=== PATIENT | male | born 1985 | race Two or more races ===

== ENCOUNTER → 2025-05-20 | Outpatient (CLI) | payer BC, SELFPAY ==
[2025-05-20 08:21] VITALS: BMI 28.4
[2025-05-20 09:22] LABS: Basophils # (Auto) 0.0 Thou/mm3 (0.0-0.2); Basophils % (Auto) 1 % (0-2.5); Eosinophils # (Auto) 0.2 Thou/mm3 (0.0-0.5); Eosinophils % (Auto) 3 % (0-10); Hematocrit 43.3 % (41.0-53.0); Hemoglobin 14.2 g/dL (13.5-16.0); Immature Granulocytes Auto 0.03 Thou/mm3 (0.00-0.00); Lymphocytes # (Auto) 2.6 Thou/mm3 (1.0-4.8); Lymphocytes % (Auto) 39 % (10-50); Mean Corpuscular HGB Conc 32.8 g/dl (31.0-37.0); Mean Corpuscular Hemoglobin 30.0 pg (25.0-35.0); Mean Corpuscular Volume 91 fL (80-100); Monocytes # (Auto) 0.6 Thou/mm3 (0.0-0.8); Monocytes % (Auto) 9 % (0-12); Neutrophils # (Auto) 3.3 Thou/mm3 (1.8-7.7); Neutrophils % (Auto) 48 % (37-80); Nucleated Red Blood Cell # 0.00 Thou/mm3 (0.00-0.00); Nucleated Red Blood Cell % 0 /100 WBC (0); Platelet Count 165 Thou/mm3 (140-440); RDW Standard Deviation 41.7 fL (35.1-43.9); Red Blood Count 4.74 Miln/mm3 (4.50-5.90); White Blood Count 6.7 Thou/mm3 (3.8-10.6)
[2025-05-20 09:44] LABS: Anion Gap 10 (7-16); BUN/Creatinine Ratio 15 Ratio (12-20); Blood Urea Nitrogen 18 mg/dL (9-23); Calcium 9.7 mg/dL (8.3-10.6); Carbon Dioxide 26.5 mMol/L (20.0-31.0); Chloride 107 mMol/L (98-107); Creatinine (Component) 1.2 mg/dL (0.6-1.3); Estimated Creatinine Clearance 82.4 mL/min (>60); Glucose 115 mg/dL (74-106); Osmolality,Calculated 287 (275-295); Potassium 4.0 mMol/L (3.4-5.1); Sodium 143 mMol/L (136-145); eGFR > 60 See Note
== END | disposition home or self-care (01) ==
LOC: SLAB 05-29 08:28
PROVIDERS: PCP Family Medicine; Referring Provider Surgery; Visit Provider Surgery
DX: Z98.52 Vasectomy status (principal)
CPT/HCPCS: 36415; 80048; 85025

== ENCOUNTER 2025-06-07 08:10 | Day surgery (SDC) | payer BC, SELFPAY ==
--- NOTE | 2025-06-06 13:33 | ESHP_ITS ---
RE: AKSHAT KRAUS : 1985 DATE OF ADMISSION: 06/06/2025 HISTORY OF PRESENT ILLNESS: A 40-year-old gentleman who was referred to me. The patient is desiring bilateral vasectomy for family planning. He has 3 children. PAST SURGICAL HISTORY: None. ALLERGIES: NONE KNOWN. PAST MEDICAL HISTORY: No history of diabetes mellitus. No history of hypertension. MEDICATIONS: None. PHYSICAL EXAMINATION: HEENT: Normal. NECK: Supple. LUNGS: Clear. CARDIOVASCULAR: Heart sounds are normal. ABDOMEN: Soft without any organomegaly. No guarding. No rigidity. EXTREMITIES: Normal. GENITOURINARY: Phallus is normal. Testes are down in the scrotum. IMPRESSION: The patient desiring bilateral vasectomy for family planning. PLAN: Planned procedure risks and complications have been discussed with the patient. The patient has understood them and agreed to proceed. DT: 12:33:16 TT: 13:31:00 Ref: [id number] - TID: [id number]
--- NOTE | 2025-06-06 15:50 | SUR.PREOP ---
Pt was cancelled last week, Dr was sick, ok to use labs from last week per Dr Franklin.
[2025-06-06 16:15] VITALS: BMI 27.0
[2025-06-07] VITALS (7 sets, daily range): BP systolic 119–146; BP diastolic 84–98; PULSE 58–91; RESP 12–20; TEMP 36.4–37.2; O2SAT 97–100; BMI 27.1
[2025-06-07] MEDS: RINGERS LACTATED 1000 ML 1,000 ML 20 ML IV (08:58)
--- NOTE | 2025-06-07 09:53 | SUR.PREOP ---
Patient expressed gratitude for prayer before their procedure
--- NOTE | 2025-06-07 10:40 | SUR.PHASEI ---
1040: Pt. AAOx4, vitals stable, breathing unlabored, no complaint of pain or nausea, dressing to scrotum CDI, no active bleed noted, report received from Dangelo SCHULTZ and Claudio ELLIS.
--- NOTE | 2025-06-07 11:35 | SUR.PHASEII ---
1135: Pt. AAOx4, vitals stable, breathing unlabored, no complaint of pain or nausea, dressing to scrotum CDI, no active bleed noted, pt. tolerated sips of water well, pt. ambulated to wheelchair with steady gait and no assist, no complications. Gave discharge instructions to the pt. and his ride using a air traffic control supervisor, both verbalized understanding and had no further questions. Pt. left with all personal belongings.
--- NOTE | 2025-06-07 17:45 | ESOP_ITS ---
RE: AKSHAT KRAUS : 1985 DATE OF OPERATION: 06/07/2025 PREOPERATIVE DIAGNOSIS: The patient is desiring bilateral vasectomy for family planning. POSTOPERATIVE DIAGNOSIS: The patient is desiring bilateral vasectomy for family planning. PROCEDURE PERFORMED: Bilateral vasectomy. ANESTHESIA: General by Mr. Claudio CRNA. INDICATION: The patient is a 40-year-old gentleman desiring bilateral vasectomy for family planning. Planned procedure, risks, and complications have been discussed with the patient. The patient has understood them and agreed to proceed. DESCRIPTION OF PROCEDURE: After the patient was brought to the operating table under adequate general anesthesia and supine position, parts were prepped and draped in the usual fashion. The right vas deferens was made subcutaneous. A small transverse incision 0.5 cm long was made over the right vas deferens. Dissection was then carried out. A small segment of the vas deferens was selected. Two clamps were placed and the segment between the clamps was excised. The ends of the vas deferens were fulgurated and ligated using 3-0 chromic catgut suture. Complete hemostasis was obtained. Skin wound was closed with interrupted sutures of 3-0 chromic catgut. In a similar fashion, the left-sided vasectomy was also done. Local anesthetic was injected at the site of the skin. Sterile dressing was then applied. The patient was then transferred to the recovery room in a satisfactory condition having tolerated the entire procedure well. Sponge count and needle count at the end of the procedure was found to be correct. Estimated blood loss was approximately 2 mL. DT: 10:53:26 TT: 17:43:00 Ref: [id number] - TID: [id number]
== END 2025-06-07 11:35 | disposition home or self-care (01) ==
PROVIDERS: PCP Family Medicine; Referring Provider Surgery; Visit Provider Surgery
PROC: (CPT 55250; principal; 2025-06-07 09:45)
DX: Z30.2 Encounter for sterilization (principal)
CPT/HCPCS: 55250; A4217; A4649; J0131; J0330; J0690; J1885; J2250; J2704; J3010; J3490; J7120; L8330; A9270